=== PATIENT | female | born 1930 | race Caucasian/White ===

== ENCOUNTER 2017-08-21 20:38 | Emergency (ER) | payer MEDICARE, OTHER ==
[~2017-08-21] VITALS: Ht 157.5 cm; Wt 68.0 kg
[~2017-08-21 20:38] MED LIST: ACHD5005 PO; AMLO5TAB2 PO; ASP325T PO; ASPI-504 PO; CALC-850 PO; CALCIUM; CHOL400T40 PO; CLD600T; CLPD75T PO; DIOVAN; DXZS2T PO; E400C; GLIM4TAB PO; GLYBURIDE; GLYBURIDE PO; LUTE10TA PO; LVT.1T PO; METFORMIN; MULT1TAB63 PO; NAPROSYN; NFAMINITAB PO; OMG1KC; OMG1KC PO; PNT40TEC PO; SYNTHROID; VALS1TAB4 PO; [UNRECOGNIZED DRUG - REMARK]
[2017-08-21] MEDS ORDERED: LIDOCAINE 1% INJ 20 ML 20 ML VIAL INJ ONE (21:00)
--- NOTE | 2017-08-21 21:22 | Diagnostic Imaging Report ---
PROCEDURE: CT head and CT cervical spine without contrast. TECHNIQUE: Multiple contiguous axial images were obtained through the brain and cervical spine without the use of intravenous contrast. Sagittal and coronal reformations through the cervical spine were then performed. INDICATION: Fall. Posterior head laceration. FINDINGS: There is no CT demonstration of acute intracranial hemorrhage. There is no evidence of an extra-axial collection. There is no mass effect or shift. There is age-appropriate volume loss. There are some microvascular changes in the white matter but no territorial loss of costello-white differentiation. The basilar cisterns appear patent. Note is made of some mild basilar invagination. There is no acute calvarial fracture. There is no air-fluid levels within the paranasal sinuses. The orbital contents are unremarkable. The mastoid air cells appear clear. CT of the cervical spine demonstrates multiple assimilation anomalies. There is fusion of the occipital condyles with the C1 level. There is also fusion of C2 and C3. There is mild basilar invagination. There is a normal relationship of the lateral masses of C1 and C2. Facet alignment is normal. There is no facet joint or disc space widening. There are large bulky anterior cervical osteophytes from C4-T1. There are advanced degenerative endplate changes present but there is no evidence to suggest an acute cervical spine fracture. There does appear to be moderate canal stenosis at C3-4, C4-5 and C5-6. The lung apices appear clear. The soft tissues of the neck demonstrate no acute process. There are carotid calcifications. IMPRESSION: 1. Age-appropriate global volume loss with background microvascular changes in the white matter. There are no CT findings of an acute intracranial abnormality. There is no evidence of intracranial hemorrhage. 2. No evidence of calvarial fracture. 3. 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 There are no findings of traumatic malalignment or acute cervical spine fracture. There do appear to be multiple levels of moderate canal stenosis, as described. Mild basilar invagination is noted. Dictated by: Dictated on workstation # [id number]
--- NOTE | 2017-08-21 21:39 | ED Trauma-Multisystem ---
General Chief Complaint: Trauma-Non Activation Stated Complaint: FALL/HEAD LAC Nursing Triage Note: pt brought in by ems with complaint of head lac. pt was in bathroom and fell and hit head on wall. denies LOC. Source of Information: Patient Exam Limitations: No Limitations History of Present Illness Date Seen by Provider: Aug 21, 2017 Time Seen by Provider: 20:36 Initial Comments Patient is an 86-year-old female who is brought to the emergency room by [facility] for a fall. The patient lives at [facility] and reports that she was bending over to cotton picker a washcloth off the floor when she lost her balance falling forward and hitting the back of her head on a sheet rock wall. The patient has a 4 cm laceration on the occipital area of her head. The patient has a c-collar in place on arrival to the emergency room. She denies LOC, head or neck pain. Occurred: Just Prior to Arrival Pain/Injury Location: Head Method of Injury: Fall Associated Symptoms (Fall): Denies Symptoms Allergies and Home Medications Allergies Coded Allergies: NKANo Known Allergies (Verified Allergy, Unknown, 05/22/06) sotalol (Verified Allergy, Unknown, 08/21/17) Home Medications Aspirin 81 Mg Tab.chew, 81 MG PO DAILY, (Reported) Calcium Carbonate/Vitamin D3 1 Each Tab.chew, 1 TAB PO DAILY, (Reported) Cholecalciferol 400 Unit Tablet, 400 UNIT PO DAILY, (Reported) Clopidogrel Bisulfate 75 Mg Tab, 75 MG PO DAILY Prescribed by: NHI MALAGON on 08/26/14 0656 Doxazosin Mesylate 2 Mg Tab, 1 MG PO BID PRN for SYSTOLIC BLOOD PRESSURE > 170 Prescribed by: NHI MALAGON on 08/26/1456 Hctz/Valsartan 1 Each Tablet, 1 TAB PO DAILY, (Reported) 160-12.5MG TABLET Levothyroxine Sodium 100 Mcg Tablet, 100 MCG PO DAILY, (Reported) Multivitamins 1 Ea Tablet, 1 TAB PO DAILY, (Reported) [place] 3 Polyunsat Fatty Acids 1,000 Mg Cap, 1,000 MG PO DAILY, (Reported) Pantoprazole Sodium 40 Mg Tablet.dr, 40 MG PO DAILY, (Reported) Vitamin C/Vitamin E 1 Tab Tab, 1 TAB PO DAILY, (Reported) Patient Home Medication List Home Medication List Reviewed: Yes Review of Systems Constitutional: see HPI; No chills, No diaphoresis, No dizziness, No weakness Eyes: See HPI; Denies Blindness, Denies Blurred Vision, Denies Drainage, Denies Pain; Other (she did recently have scar tissue removed from her right eye.) Ears: See HPI; Denies Dizziness, Denies Pain Nose: See HPI; No Bloody Discharge, No Clear Discharge, No Purulent Discharge, No Epistaxis, No Pain Mouth: See HPI; No Bloody Discharge, No Clear Discharge, No Loose Teeth, No Pain Throat: See HPI; No Aphonia, No Difficulty With Fluids, No Discharge Respiratory: see HPI; No dyspnea on exertion, No short of breath, No wheezing Cardiovascular: See HPI; Denies Chest Pain, Denies Edema, Denies Irregular Heart Rate Gastrointestinal: see HPI; No abdominal pain, No nausea, No vomiting Genitourinary: see HPI; No decreased output, No discharge Musculoskeletal: see HPI; No back pain, No joint swelling, No neck pain Skin: see HPI; No change in color, No change in hair/nails; other (laceration to the occipital area.) Psychiatric/Neurological: See HPI; Denies Anxiety, Denies Depressed All Other Systems Reviewed Negative Unless Noted: Yes Past Makzjqc-Iwhkvd-Linuya Hx Past Med/Social Hx: Reviewed Nursing Past Med/Soc Hx Patient Social History Alcohol Use: Denies Use Recreational Drug Use: No Smoking Status: Never a Smoker Recent Foreign Travel: No Contact w/Someone Who Travel: No Recent Infectious Disease Expo: No Recent Hopitalizations: Yes (ABOMINAL PAIN (previous sx for adhesions)) Immunizations Up To Date Tetanus Booster (TDap): Unknown Date of Pneumonia Vaccine: Dec 23, 2009 Date of Influenza Vaccine: Nov 24, 2013 Seasonal Allergies Seasonal Allergies: Yes Past Medical History Surgeries: Yes (FOOT,HYST,BRICE.,CORNEA INPLANTS,L mastectomy) Gallbladder, Hysterectomy, Orthopedic Respiratory: No Cardiac: Yes (BRADYCARDIA) Hypertension, Irregular Heartbeat Neurological: No Reproductive Disorders: No Female Reproductive Disorders: Denies Sexually Transmitted Disease: No HIV/AIDS: No Gastrointestinal: No Gastroesophageal Reflux, Chronic Constipation Musculoskeletal: Yes (LOWER BACK PAIN) Chronic Back Pain Endocrine: Yes Diabetes, Non-Insulin dep Cancer: Yes Skin, Breast, Uterine Psychosocial: No Integumentary: No Blood Disorders: No Adverse Reaction/Blood Tranf: No Family Medical History Reviewed Nursing Family Hx Cancer Cataract Chest pain Family history: Allergy Family history: Arthritis Family history: Coronary thrombosis Family history: Diabetes mellitus Family history: Glaucoma Family history: Hypertension Family history: Thyroid disorder Headache Heart disease Hereditary disease History of drug abuse Myocardial infarction Visual impairment No Family History of: Abdominal aortic aneurysm [place]'s disease Alcoholism Aphasia Cancer of colon Congenital heart disease Congestive heart failure Cystic fibrosis Dementia Dysphagia Family history: Alzheimer's disease Family history: Asthma Family history: Breast disease Family history: Cardiovascular disease Family history: Gastrointestinal disease Family history: Osteoporosis Hearing loss History of - anemia History of - disorder History of - respiratory disease Human immunodeficiency virus (HIV) seropositivity Hypercholesterolemia Infertile Kidney disease Malignant neoplasm of lung Parkinson's disease Prostate cancer Psychotic disorder Seizure disorder Stroke Tuberculosis Physical Exam Vital Signs Temperature (Fahrenheit): 97.0 General Appearance: No Apparent Distress, WD/WN Head: Active Bleeding (the patient is bleeding that is controlled at this time with pressure), Lacerations; No Mota's Sign, No Contusions, No Ecchymosis, No Swelling Ears, Nose, Throat: Hearing Grossly Normal, No Evidence of ENT Injury, No Dental Injury Neck: Full Range of Motion, Normal Inspection, Non Tender, Supple Cardiovascular: Regular Rate, Rhythm, No Edema, No Gallop, No JVD, No Murmur, Normal Peripheral Pulses Respiratory: Chest Non Tender, Lungs Clear, Normal Breath Sounds, No Accessory Muscle Use, No Respiratory Distress Gastrointestinal: Normal Bowel Sounds, No Organomegaly, No Pulsatile Mass, Non Tender, Soft Neurologic/Psychiatric: Alert, Oriented x3, No Motor/Sensory Deficits, Normal Mood/Affect Skin: Other (dorsomedial laceration to the occipital area of her head.) Lymphatic: No Adenopathy [place] Coma Score Best Eye Response ([place]): (4) Open Spontaneously Best Verbal Response ([place]): (5) Oriented Best Motor Response ([place]): (6) Obeys Commands Nohemy Total: 15 Procedures/Interventions Wound Location: Scalp Wound Length (cm): 4 Wound's Depth, Shape: linear Wound Explored: clean Irrigated w/ Saline (ccs): 100 Staple Repair: Stapler 35W Progress The laceration was anesthetized with approximately 4 mL of 1% lidocaine. The wound was cleaned and irrigated with 100 mL of normal saline and Betasept. The wound was closed with 5 rony. Progress/Results/Core Measures Results/Orders My Orders Orders - RAINE SINGH Ct Head/Cervical Spine Wo (08/21/17 20:44) Lidocaine 1% Inj 20 Ml (Xylocaine 1% Inj (08/21/17 21:00) Dipht,Pertuss(Acell),Tet Adult (Boostrix (08/21/17 22:15) Dipht,Pertuss(Acell),Tet Adult (Boostrix (08/21/17 22:14) Vaccine Administration Single (08/21/17 ) Medications Given in ED Vital Signs/I&O Blood Pressure Mean: 107 Progress Progress Note : Time: 21:25 Progress Note The patient's c-collar was removed at this time. She was in the form of only degenerative changes in her imaging. She agrees with plans for staple repair of the laceration, update of tetanus vaccine, and discharge back to the long term. Diagnostic Imaging Diagonstic Imaging: CT Plain Films/CT/US/NM/MRI: c-spine, head Comments NAME: ANGELITA SERNA [facility] REC#: [id number] PHYSICIAN: RAINE SINGH CC: RAINE SIGNH; TOMI RINCON MD Page 2 of 2 RADIOLOGY REPORT [facility] [place] CC: RAINE SINGH; TOMI RINCON MD Page 1 of 2 RADIOLOGY REPORT NAME: ANGELITA SERNA [facility] REC#: [id number] PT STATUS: REG ER : 1930 PHYSICIAN: RAINE SINGH ADMIT DATE: 08/21/17/ER Signed Date of Exam: 08/21/17 CT HEAD/CERVICAL SPINE WO PROCEDURE: CT head and CT cervical spine without contrast. TECHNIQUE: Multiple contiguous axial images were obtained through the brain and cervical spine without the use of intravenous contrast. Sagittal and coronal reformations through the cervical spine were then performed. INDICATION: Fall. Posterior head laceration. FINDINGS: There is no CT demonstration of acute intracranial hemorrhage. There is no evidence of an extra-axial collection. There is no mass effect or shift. There is age-appropriate volume loss. There are some microvascular changes in the white matter but no territorial loss of costello-white differentiation. The basilar cisterns appear patent. Note is made of some mild basilar invagination. There is no acute calvarial fracture. There is no air-fluid levels within the paranasal sinuses. The orbital contents are unremarkable. The mastoid air cells appear clear. CT of the cervical spine demonstrates multiple assimilation anomalies. There is fusion of the occipital condyles with the C1 level. There is also fusion of C2 and C3. There is mild basilar invagination. There is a normal relationship of the lateral masses of C1 and C2. Facet alignment is normal. There is no facet joint or disc space widening. There are large bulky anterior cervical osteophytes from C4-T1. There are advanced degenerative endplate changes present but there is no evidence to suggest an acute cervical spine fracture. There does appear to be moderate canal stenosis at C3-4, C4-5 and C5-6. The lung apices appear clear. The soft tissues of the neck demonstrate no acute process. There are carotid calcifications. IMPRESSION: 1. Age-appropriate global volume loss with background microvascular changes in the white matter. There are no CT findings of an acute intracranial abnormality. There is no evidence of intracranial hemorrhage. 2. No evidence of calvarial fracture. 3. 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 There are no findings of traumatic malalignment or acute cervical spine fracture. There do appear to be multiple levels of moderate canal stenosis, as described. Mild basilar invagination is noted. Dictated by: Dictated on workstation # [id number] Dict: 08/21/172112 Trans: 08/21/172126 Interpreted by: TOMI RINCON MD Electronically signed by: TOMI RINCON MD 08/21/172126 Reviewed: Reviewed by Me Departure Impression Primary Impression: Fall Qualified Codes: W19.XXXA - Unspecified fall, initial encounter Additional Impression: Scalp laceration Qualified Codes: S01.01XA - Laceration without foreign body of scalp, initial encounter Disposition: 01 HOME, SELF-CARE Condition: Stable/Unchanged Departure-Patient Inst. Decision time for Depature: 21:37 Referrals: RADHA MALAGON MD (PCP/Family) Primary Care Physician Patient Instructions: Laceration Repair With Rony (DC), Minor Head Injury ( DC) Add. Discharge Instructions: The nurse's at via [facility] [place] can remove the rony in 5-7 days or you can return back to the emergency room to have them taken out at this time. Return back to the emergency room for any concerns as needed. Follow-up with her doctor within 1 week for recheck call tomorrow morning for appointment time. All discharge instructions reviewed with patient and/or family. Voiced understanding. RAINE SINGH Aug 21, 2017 21:39
[2017-08-21] MEDS ORDERED: TETANUS,DIPTH,PERTUSS P/F (BOOSTRIX) 0.5 ML VIAL IM ONE ×2 (22:14→22:15)
[2017-08-21 22:24] VITALS: BP 170/76
== END 2017-08-21 22:24 | disposition home or self-care (01) ==
LOC: EDUNIT# 20:38 → ER 20:41
DX: S01.01XA Laceration without foreign body of scalp, initial encounter (principal); R40.2142 Coma scale, eyes open, spontaneous, at arrival to emergency department; R40.2252 Coma scale, best verbal response, oriented, at arrival to emergency department; R40.2362 Coma scale, best motor response, obeys commands, at arrival to emergency department; I10 Essential (primary) hypertension; K21.9 Gastro-esophageal reflux disease without esophagitis; E11.9 Type 2 diabetes mellitus without complications; Z85.3 Personal history of malignant neoplasm of breast; Z85.828 Personal history of other malignant neoplasm of skin; Z85.40 Personal history of malignant neoplasm of unspecified female genital organ; Z23 Encounter for immunization; Z90.710 Acquired absence of both cervix and uterus; Z79.82 Long term (current) use of aspirin; Z88.8 Allergy status to other drugs, medicaments and biological substances; W01.198A Fall on same level from slipping, tripping and stumbling with subsequent striking against other object, initial encounter
CPT/HCPCS: 70450; 72125; 90471; 90715

== ENCOUNTER 2018-09-22 12:41 | Outpatient (RCR) | payer MEDICARE, OTHER ==
[2018-11-20] MEDS ORDERED: ASPI-983 PO (10:33)
[2018-11-20] MEDS ORDERED: C,E,1CAP PO (10:33)
[2018-11-20] MEDS ORDERED: CALC1TAB PO (10:33)
[2018-11-20] MEDS ORDERED: PANT40TA3 PO (10:33)
[2018-11-20] MEDS ORDERED: MULT1TAB69 PO (10:33)
[2018-11-20] MEDS ORDERED: FISH1CAP15 PO (10:33)
[2018-11-20] MEDS ORDERED: LEVO100T7 PO (10:33)
[2018-11-20] MEDS ORDERED: LATA2.5D5 OU (10:38)
[2018-11-20] MEDS ORDERED: DOCU-143 PO (10:38)
[2018-11-20] MEDS ORDERED: ACET-2267 PO (10:38)
[2018-11-20] MEDS ORDERED: LORA10TA76 PO (10:38)
[2018-11-20] MEDS ORDERED: TIMO5DRO5 OU (10:38)
[2018-11-20] MEDS ORDERED: DIPH25CA79 PO (10:38)
[2018-11-20] MEDS ORDERED: L. A1CAP11 PO (10:38)
[2018-11-20] MEDS ORDERED: GLIM4TAB PO (10:38)
[2018-11-20] MEDS ORDERED: AMLO5TAB9 PO (10:38)
[2018-11-20] MEDS ORDERED: VALS1TAB5 PO (10:40)
[2018-11-21] MEDS ORDERED: CEPH-507 PO (11:48)
== END 2018-12-21 | disposition home or self-care (01) ==
LOC: CARD 12:41
PROVIDERS: ATTEND Internal Medicine Interventional Cardiology
DX: I49.5 Sick sinus syndrome (principal); I10 Essential (primary) hypertension; E11.9 Type 2 diabetes mellitus without complications; R42 Dizziness and giddiness; I48.0 Paroxysmal atrial fibrillation; I07.1 Rheumatic tricuspid insufficiency
CPT/HCPCS: 93306

== ENCOUNTER 2018-11-20 09:10 | Day surgery (SDC) | payer MEDICARE, OTHER ==
[~2018-11-20] VITALS: Ht 160 cm; Wt 67.6 kg
[2018-11-20] VITALS (8 sets, daily range): BP systolic 115–150; BP diastolic 53–88
[2018-11-20] MEDS ORDERED: NS IV 1000 ML 1,000 ML ONE (09:15)
[2018-11-20] MEDS ORDERED: BACITRACIN INJECTION 50,000 UNIT, SODIUM CHLORIDE 0.9% IRRIGATIO 500 ML IR ONE ×4 (09:15→11:15)
[2018-11-20] MEDS ORDERED: ceFAZolin INJECTION 1,000 MG VIAL IV ONE ×2 (09:15→11:15)
[2018-11-20] MEDS ORDERED: LIDOCAINE 1% INJ 20 ML 20 ML VIAL ONE (09:15)
[2018-11-20] MEDS ORDERED: HEParin (CATH LAB) 1,000 ML IV ONE (09:16)
[2018-11-20] MEDS ORDERED: ceFAZolin INJECTION 2,000 MG ONE (09:17)
[2018-11-20] MEDS ORDERED: NS (IVPB) 50 ML ONE (09:18)
[2018-11-20] MEDS ORDERED: NS IV 1000 ML 1,000 ML IV SCH ×2 (09:19→12:35)
[2018-11-20 09:48] LABS: HEMOGLOBIN 14.2 G/DL (11.5-16.0); WHITE BLOOD COUNT 7.7 10^3/uL (4.3-11.0)
[2018-11-20 09:49] LABS: MEAN PLATELET VOLUME 9.7 FL (7.4-10.4); RED CELL DISTRIBUTION WIDTH 15.9 % (10.0-14.5)
[2018-11-20 10:00] LABS: PROTHROMBIN TIME PATIENT 13.4 SEC (12.2-14.7)
[2018-11-20 10:08] LABS: ALBUMIN 4.2 GM/DL (3.2-4.5); BILIRUBIN,TOTAL 0.7 MG/DL (0.1-1.0); CALCIUM 9.7 MG/DL (8.5-10.1); CREATININE SERUM 0.9 MG/DL (0.60-1.30); POTASSIUM 3.9 MMOL/L (3.6-5.0); TOTAL PROTEIN 7.7 GM/DL (6.4-8.2)
[2018-11-20] MEDS ORDERED: MIDAZOLAM 5 MG/5 ML (VERSED) VIAL ONE (10:16)
[2018-11-20] MEDS ORDERED: fentaNYL INJECTION 100 MCG/2 ML AMP ONE (10:16)
[2018-11-20] MEDS ORDERED: LEVO100T7 PO (10:33)
[2018-11-20] MEDS ORDERED: ASPI-983 PO (10:33)
[2018-11-20] MEDS ORDERED: PANT40TA3 PO (10:33)
[2018-11-20] MEDS ORDERED: FISH1CAP15 PO (10:33)
[2018-11-20] MEDS ORDERED: C,E,1CAP PO (10:33)
[2018-11-20] MEDS ORDERED: CALC1TAB PO (10:33)
[2018-11-20] MEDS ORDERED: MULT1TAB69 PO (10:33)
[2018-11-20] MEDS ORDERED: L. A1CAP11 PO (10:38)
[2018-11-20] MEDS ORDERED: LORA10TA76 PO (10:38)
[2018-11-20] MEDS ORDERED: AMLO5TAB9 PO (10:38)
[2018-11-20] MEDS ORDERED: GLIM4TAB PO (10:38)
[2018-11-20] MEDS ORDERED: DOCU-143 PO (10:38)
[2018-11-20] MEDS ORDERED: TIMO5DRO5 OU (10:38)
[2018-11-20] MEDS ORDERED: ACET-2267 PO (10:38)
[2018-11-20] MEDS ORDERED: LATA2.5D5 OU (10:38)
[2018-11-20] MEDS ORDERED: DIPH25CA79 PO (10:38)
[2018-11-20] MEDS ORDERED: VALS1TAB5 PO (10:40)
--- NOTE | 2018-11-20 11:38 | NUR ---
SPOKE WITH THE PT, SHE IS A RESIDENT OF [facility] BUT SHE TAKES CARE OF HER OWN MEDS. I ALSO SPOKE WITH [facility] TO VERIFY MEDS AND DATES AND WITH THIS INFORMATION I WAS ABLE TO COMPLETE THE MED REC. 08-31-2018 VALSARTAN/HCTZ#30/30DS 09-01-2018 GLIMEPIRIDE #30/30DS 09-15-2018 AMLODIPINE #90/90DS 09-30-2018 LEVOTHYROXINE #30/30DS 10-10-2018 LATANOPROST DROPS 10-16-2018 TIMOLOL DROPS 11-19-2018 PANTOPRAZOLE #30/30DS MANY OF THE MEDICATIONS LISTED ABOVE ARE PAST DUE FOR REFILLS, BUT NOT FAR ENOUGH OUT THAT THE PT DIDNT HAVE A STOCK BUILT UP AND COULD STILL BE COMPLIANT- FOR THAT REASON I DID LEAVE EVERYTHING ON THE MED REC. OTC MEDS: ACETAMINOPHEN 500M BID PRN ASPIRIN 81M DAILY OCUVITE: 1 DAILY CALTRATE WITH VIT D: 1 DAILY DIPHENHYDRAMINE 25M BID PRN DOCUSATE: 1 BID PRN FISH OIL: 1 DAILY ACIDOPHILUS: 1 DAILY LORATADINE 10M HS MULTIVITAMIN: 1 DAILY
--- NOTE | 2018-11-20 12:27 | Cardiac Procedure Note-CS/ASA ---
Pre-Procedure Note Pre-Op Procedure Note H&P Reviewed The H&P was reviewed, patient examined and no changes noted. Date H&P Reviewed: Nov 20, 2018 Time H&P Reviewed: 11:00 Conscious Sedation Pre-Proced Time 11:00 ASA Score 3 For ASA 3 and 4: Consider anesthesia and medical clearance. Also, for patients with a history of failed moderate sedation consider anesthesia. Airway Lungs Heart ASA score ASA 1: a normal healthy patient ASA 2: a patient with a mild systemic disease (mid diabetes, controlled hypertension, obesity ASA 3: a patient with a severe systemic disease that limits activity (angina, COPD, prior Myocardial infarction) ASA 4: a patient with an incapacitating disease that is a constant threat to life (CHF, renal failure) ASA 5: a moribund patient not expected to survive 24 hrs. (ruptured aneurysm) ASA 6: a declared brain- patient whose organs are being harvested. For emergent operations, add the letter E after the classification Mallampati Classification Grade 1 Sedation Plan Analgesia, Amnesia, Plan communicated to team members, Discussed options with patient/fam, Discussed risks with patient/fam The patient is an appropriate candidate to undergo the planned procedure, sedation, and anesthesia. The patient immediately re-assessed prior to indication. Inga CASTILLO MD Nov 20, 2018 12:27
--- NOTE | 2018-11-20 12:34 | Permanent Pacemaker Implant ---
Dual Chamber Pacemaker Implant PROCEDURE PHYSICIAN: Alexa Schulz MD DUAL CHAMBER PACEMAKER IMPLANTATION: DATE OF PROCEDURE: 11/20/18 INDICATION: Severe symptomatic sinus node dysfunction. PREOPERATIVE DIAGNOSIS: Severe symptomatic sinus node dysfunction. POSTOPERATIVE DIAGNOSIS: Severe symptomatic sinus node dysfunction, successful dual-chamber permanent pacemaker implantation. HISTORY: This is a 88-year-old lady with symptomatic sinus node dysfunction with lowest heart rate of 24 bpm at 7 p.m. in the evening when she was awake. She complained of dizziness, fatigue. Dual-chamber permanent pacemaker was recommended. PROCEDURE PERFORMED: 1. Dual-chamber permanent pacemaker implantation. 2. Fluoroscopy. 3. Central venous access. ANESTHESIA: Local anesthesia, conscious sedation. COMPLICATIONS: None. ESTIMATED BLOOD LOSS:20 mL. SPECIMENS: None. ORAL ANTICOAGULATION: None. FLUOROSCOPY TIME: 3 minutes 52 seconds. FLUOROSCOPY DOSE: 10 mgy. CONTRAST DOSE: none. PROCEDURE DETAILS: The patient is a 88 female and after all of the patients questions were answered, the patient was brought to the EP Lab. The patient's left chest was prepped and draped in sterile fashion. A 2 inch horizontal incision was made 1 cm below the clavicle and dissection carried down to the pectoralis fascia. Using the modified Seldinger technique and under fluoroscopy guidance, the anterior aspect of the left axillary vein was accessed 2 times. The J wires were secured to the drapes with a mosquito clamp. A 7-[place] sheath was introduced over one of the J-wires. The RV lead was then inserted. The RV lead was directed across the tricuspid valve to the apical septal portion of the right ventricle. The position was checked in VIET[place]ESE and MATTA views. The screw was deployed and the lead connected to the tools programmer. Close sensing and pacing thresholds were obta ined. Diaphragmatic pacing was ruled out. The lead was secured with 2-0 silk ties to the underlying muscle and fascia. Next, a 7-[place] sheath was introduced through the remaining J-wire. An atrial lead was then introduced and guided to the level of the right appendage. The screw was deployed and the lead was connected to the interrogator. Good sensing and pacing thresholds were obtained. Diaphragmatic pacing was ruled out. The leads were secured with 2-0 silk ties to the underlying muscle and fascia. The leads were connected to the device in a hermetic fashion. The device and leads were placed in the pocket. Aggressive irrigation with saline solution was done. The device was secured to the underlying muscle and fascia with a 2-0 silk tie. interrogation of the device revealed good integrity of all the leads and good connections. The wound was then closed using 2 layers. The first layer was interrupted 2-0 absorbable Vicryl suture. The last layer was a single subcuticular layer with 4- 0 Vicryl suture. Half inch Steri-Strips and a small dressing were then applied to the wound. The patient tolerated the procedure well and was returned to the recovery room in stable condition with stable vital signs. DEVICE INFORMATION: [employer] IPG [id number] Nickie S MRI, model number W3 DR 01, serial number [id number] RA LEAD: Model number [id number], length 45, serial number [id number]. RV LEAD: Model number [id number], length 52, serial number [id number]. PER-OPERATIVE DEVICE INTERROGATION: Right atrium capture threshold 1.5 V at 0.5 ms. Impedance 627 ohms. P wave 2.0 mV. RV capture threshold 0.625 V at 0.5 ms, impedance 798 ohms, R wave 10.5 mV. IMMEDIATE POSTOPERATIVE DEVICE INTERROGATION: Right atrium capture threshold 1.75 V at 0.4 ms. P-wave 1.8 mV. Pacing impedance 570 ohms. RV capture threshold 0.75 at 0.4 ms, R wave 7.1 mV, pacing impedance 779 ohms. PLAN: The patient transferred to the ICU. We will continue with two more doses of IV antibiotics. We will check a chest x-ray and interrogate the device in the morning. The patient will continue on oral antibiotics for 5 days. Alexa Schulz MD, [facility], CCDS Cardiac Electrophysiology Inga SCHULZ MD Nov 20, 2018 12:34
[2018-11-20] MEDS ORDERED: NEO/POLY/BAC (NEOSPORIN) OINT 15 GM TUBE ONE (12:35)
[2018-11-20] MEDS ORDERED: PATIENT MAY USE OWN MEDS, ALL PO SCH (12:45)
--- NOTE | 2018-11-20 15:42 | Diagnostic Imaging Report ---
INDICATION: Status post pacemaker placement. COMPARISON: 08/26/2014. FINDINGS: Single frontal radiographic view of the chest is obtained and demonstrates interval placement of left-sided dual-lead pacemaker. There is no pneumothorax or large effusion on either side. Lungs are otherwise clear. Cardiac silhouette and pulmonary vasculature are within normal limits. Note is made of moderate calcified aortic atherosclerosis. Osseous structures show no gross acute abnormalities. IMPRESSION: 1. New left-sided dual-lead pacemaker. No evidence of effusion or pneumothorax. Dictated by: Dictated on workstation # [id number]
[2018-11-20] MEDS: ceFAZolin INJECTION 1,000 MG in WATER (STERILE) FOR INJECTION 10 ML IV SCH (19:30)
[2018-11-21] VITALS: BP 109/75
[2018-11-21] MEDS: ceFAZolin INJECTION 1,000 MG in WATER (STERILE) FOR INJECTION 10 ML IV SCH ×2 (03:09→11:33)
[2018-11-21 03:16] LABS: HEMOGLOBIN 13.3 G/DL (11.5-16.0); MEAN PLATELET VOLUME 9.4 FL (7.4-10.4); RED CELL DISTRIBUTION WIDTH 15.7 % (10.0-14.5); WHITE BLOOD COUNT 8.8 10^3/uL (4.3-11.0)
[2018-11-21 03:34] LABS: ALANINE AMINOTRANSFERASE 15 U/L (0-55); ALBUMIN 3.7 GM/DL (3.2-4.5); ALKALINE PHOSPHATASE 67 U/L (40-136); BILIRUBIN,TOTAL 0.8 MG/DL (0.1-1.0); BUN/CREATININE RATIO 19; CARBON DIOXIDE 25 MMOL/L (21-32); CHLORIDE 104 MMOL/L (98-107); CREATININE SERUM 0.73 MG/DL (0.60-1.30); GFR ESTIMATED > 60; GLUCOSE 106 MG/DL (70-105); POTASSIUM 3.8 MMOL/L (3.6-5.0); SODIUM 137 MMOL/L (135-145); TOTAL PROTEIN 6.8 GM/DL (6.4-8.2)
[2018-11-21 04:00] VITALS: BP 134/57
[2018-11-21 08:00] VITALS: BP 132/75
[2018-11-21 08:25] VITALS: BP 132/75
[2018-11-21] MEDS ORDERED: DEXTROSE 50% 50 ML (IMS) SYR ONE (08:34)
[2018-11-21] MEDS ORDERED: CEPH-507 PO (11:48)
[2018-11-21 12:00] VITALS: BP 149/65
--- NOTE | 2018-11-21 13:32 | Cardiology Discharge Summary ---
Diagnosis/Chief Complaint Date of Admission 11/20/2018 Date of Discharge 11/21/2018 Admission Diagnosis Severe symptomatic sinus node dysfunction Final/Discharge Diagnosis Severe symptomatic sinus node dysfunction, dual-chamber permanent pacemaker implantation Chief Complaint/HPI Chief Complaint/HPI Severe symptomatic sinus node dysfunction with lowest heart rate of 24 BPM. Discharge Summary Procedures Dual-chamber permanent pacemaker implantation. Discharge Physical Examination Unremarkable. Hospital Course Was the Problem List Reviewed?: Yes Unremarkable. Discussion & Recommendations Discussion By mouth antibiotics for 5 days. Follow up appt.: coal gasification technician check in one week. Device check and follow-up with Dr. Schulz in one month. Dicharge Diet: Regular Diet Activity as Tolerated: Yes Home Medications Reviewed patient Home Medication Reconciliation performed by pharmacy medication reconciliations pv design and installation technician and/or nursing. Patients Allergies have been reviewed. Discharge Home Medications: Reviewed and agree with Discharge Medication list on patient's Discharge Instruction sheet Condition at discharge Stable. Instructions to patient/family Discussed with the patient. Inga SCHULZ MD Nov 21, 2018 13:32
== END 2018-11-21 12:15 | disposition home or self-care (01) ==
LOC: CATH 09:10 → ICU 13:16 → CATH 11-21 12:15
PROVIDERS: ATTEND Internal Medicine Interventional Cardiology
DX: I49.5 Sick sinus syndrome (principal); I48.0 Paroxysmal atrial fibrillation; E11.9 Type 2 diabetes mellitus without complications; I10 Essential (primary) hypertension; K21.9 Gastro-esophageal reflux disease without esophagitis; E78.5 Hyperlipidemia, unspecified; I07.1 Rheumatic tricuspid insufficiency; Z90.49 Acquired absence of other specified parts of digestive tract; Z90.710 Acquired absence of both cervix and uterus; Z90.12 Acquired absence of left breast and nipple; Z82.49 Family history of ischemic heart disease and other diseases of the circulatory system; Z87.891 Personal history of nicotine dependence; Z79.899 Other long term (current) drug therapy; Z79.84 Long term (current) use of oral hypoglycemic drugs; Z83.3 Family history of diabetes mellitus
CPT/HCPCS: 33208; 36415; 71045; 80053; 85027; 85610; 85730; 87081; 93005

== ENCOUNTER → 2019-05-03 | Outpatient (CLI) | payer MEDICARE, OTHER ==
[~2019-05-03] MED LIST changes: +ACET-2267 PO; +AMLO5TAB9 PO; +ASPI-983 PO; +C,E,1CAP PO; +CALC1TAB PO; +CEPH-507 PO; +DIPH25CA79 PO; +DOCU-143 PO; +FISH1CAP15 PO; +GLIM4TAB5 PO; +L. A1CAP11 PO; +LATA2.5D5 OU; +LEVO100T7 PO; +LORA10TA76 PO; +MULT1TAB69 PO; +PANT40TA3 PO; +TIMO5DRO5 OU; +VALS1TAB5 PO
--- NOTE | 2019-05-03 13:00 | Diagnostic Imaging Report ---
Indication: Lower respiratory infection PA and lateral chest There is a dual-chamber pacemaker. The patient has a left breast prosthesis. Heart size and pulmonary vascularity are normal. Lungs are clear. There are no effusions or pneumothoraces. IMPRESSION: No acute abnormalities in the chest Dictated by: Dictated on workstation # [id number]
== END ==
LOC: RAD 11:27
PROVIDERS: ATTEND Nurse Practitioner
DX: J18.9 Pneumonia, unspecified organism (principal); J22 Unspecified acute lower respiratory infection
CPT/HCPCS: 71046

== ENCOUNTER → 2020-02-17 | Outpatient (CLI) | payer MEDICARE, OTHER ==
[~2020-02-17] MED LIST changes: +AMLO-250 PO; -AMLO5TAB9 PO; +ASPI-1238 PO; -ASPI-983 PO; +CALC-147 PO; +CARB10DR OU; +DEXT1LOZ PO; +FAMO20TA3 PO; +FLUT9.9S NSEACH; +MACUGUARD PO; +MULT-567 PO; -MULT1TAB69 PO; -PANT40TA3 PO; +PANT40TA52 PO; +SALM1CAP4 PO
[2020-02-17 14:42] LABS: BILIRUBIN,URINE NEGATIVE (NEGATIVE); CLARITY,URINE CLEAR; COLOR,URINE YELLOW; GLUCOSE, URINE (UA) NEGATIVE (NEGATIVE); KETONES,URINE NEGATIVE (NEGATIVE); LEUKOCYTE ESTERASE ,URINE 1+ (NEGATIVE); NITRITE,URINE NEGATIVE (NEGATIVE); PH,URINE 6.5 (5-9); PROTEIN,URINE NEGATIVE (NEGATIVE)
[2020-02-17 14:50] LABS: BACTERIA,URINE FEW /HPF; SQUAMOUS EPITHELIAL CELL,UR 0-2 /HPF
== END ==
LOC: CVS 14:34
PROVIDERS: ATTEND Internal Medicine
DX: R35.0 Frequency of micturition (principal); R30.9 Painful micturition, unspecified
CPT/HCPCS: 81000; 87077; 87088; 87186

== ENCOUNTER → 2020-07-03 | Outpatient (CLI) | payer MEDICARE, OTHER | LOC: CARD 13:30 | PROVIDERS: ATTEND Internal Medicine Cardiovascular Disease | DX: I35.0 Nonrheumatic aortic (valve) stenosis (principal); I10 Essential (primary) hypertension; I25.10 Atherosclerotic heart disease of native coronary artery without angina pectoris | CPT/HCPCS: 93306 ==